=== PATIENT | female | born 1990 | race American Indian/Alaskan Native ===

== ENCOUNTER 2017-08-12 02:59 | Emergency (ER) | payer SELFPAY ==
[2017-08-12] MEDS ORDERED: TORADOL IV ONE (03:15)
[2017-08-12] MEDS ORDERED: MORPHINE IV ONE ×2 (03:15→03:17)
[2017-08-12] MEDS ORDERED: ZOFRAN IV ONE (03:15)
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
[2017-08-12] MEDS ORDERED: ATIVAN IV ONE (03:55)
[2017-08-12] MEDS ORDERED: NACL 0.9% 1000 ML 1,000 ML IV ONE (03:55)
[2017-08-12] MEDS ORDERED: DILAUDID IV ONE ×2 (04:23→05:15)
[2017-08-12] MEDS ORDERED: BENADRYL IV ONE (04:23)
[2017-08-12] MEDS ORDERED: DIPRIVAN 10 MG/ML IV ONE (06:23)
[2017-08-12] MEDS ORDERED: KETALAR IV ONE (06:23)
[2017-08-12] MEDS ORDERED: DIPRIVAN 10 MG/ML 1,000 MG/100 ML BOTTLE IV ONE (06:31)
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
--- NOTE | 2017-08-12 07:36 | XRay Report ---
AP PELVIS: HISTORY: Left hip dislocation, postreduction film. The superolateral dislocation at the left hip has been reduced since earlier today at 0435 hrs. Alignment is anatomic at the left hip joint, however, a displaced fracture involving the posterior and superior barron of the left acetabulum is suspected. The proximal left femur is intact. The right hemipelvis is cut off the [id number]. IMPRESSION: Successful reduction of the left hip dislocation. Left acetabular fracture is suspected. CT pelvis without contrast and orthopedic consult are recommended.
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
[2017-08-12] MEDS ORDERED: SUBLIMAZE ONE (09:13)
[2017-08-12] MEDS ORDERED: SUBLIMAZE IV ONE (09:15)
[2017-08-12 09:33] VITALS: BP 122/72
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
== END 2017-08-12 09:34 | disposition other institution (70) ==
LOC: ED 02:59
DX: S73.005A Unspecified dislocation of left hip, initial encounter (principal); F41.9 Anxiety disorder, unspecified; J45.909 Unspecified asthma, uncomplicated; F17.200 Nicotine dependence, unspecified, uncomplicated; Z91.040 Latex allergy status; V49.49XA Driver injured in collision with other motor vehicles in traffic accident, initial encounter; Y93.89 Activity, other specified; Y92.89 Other specified places as the place of occurrence of the external cause; Y99.8 Other external cause status
CPT/HCPCS: 27250; 70450; 72125; 72170; 73562; 96361; 96374; 96375; 96376; 99284; J1170; J1200; J1885; J2060; J2270; J2405; J2704; J3010; J7030